=== PATIENT | female | born 1995 | race African-American/Black ===

== ENCOUNTER 2016-06-01 10:46 | Emergency (ER) | payer OTHER ==
[~2016-06-01] VITALS: Ht 157.5 cm; Wt 54.4 kg
[~2016-06-01 10:46] MED LIST: FLEXERIL10 MG PO; MOTRIN 600 MG600 MG PO; MOTRIN800 MG PO; NAPROSYN 500 M500 MG PO; TORADOL10 MG PO; TRAMADOL50 MG PO; ZOFRAN 4 MG TABL4 MG PO
--- NOTE | 2016-06-01 12:28 | ED SKIN/ALLERGY COMPLAINT ---
History of Present Illness General Chief Complaint: Suture Removal/Wound Recheck Stated Complaint: SUTURE REMOVAL Source: patient Exam Limitations: no limitations Vital Signs & Intake/Output Vital Signs & Intake/Output Vital Signs Date Time Temp Pulse Resp B/P Pulse O2 O2 Flow FiO2 Ox Delivery Rate 06/01 1304 98.0 60 20 110/60 98 Room Air 06/01 1134 97.9 63 18 108/38 97 Room Air Allergies Coded Allergies: NO KNOWN ALLERGIES (NONE) (01/11/15) Reconcile Medications No Known Home Medications Triage Note: 20 Y/O FEMALE REQUESTING SUTURE REMOVAL - 2 PLACED IN DIFFERENT SITES ON ABDOMEN; PT STATES SHE HAD LAPROSCOPIC SURGERY 04/15/16 AND "THEY WERE SUPPOSED TO DISSOLVE BUT THEY DIDNT". PT DENIES ANY COMPLAINTS. DID NOT CALL SURGEON (DR VALVERDE) Triage Nurses Notes Reviewed? yes : No Patient currently breastfeeds: No HPI: this patient is a 20-year-old female who presented to the emergency department today for evaluation of needing a possible suture removal. The patient reported that she was seen by Dr. Ralph at approximately 1 month ago to have a laparoscopy to evaluate for a possible ectopic . She had 2 small incisions, one at the umbilicus, and one in the suprapubic region which each required 1 and dissolvable suture. She reported that the sutures have not yet dissolved and she is requesting for them to be removed. The patient did not call her [employer]AK[employer] TE[employer]'s office prior to arrival. She denied any pain in these regions. She denies any discharge or redness or swelling. She denied any fevers or chills. No abdominal pain, nausea, or vomiting. (LETY JACQUES PA-C) Past History Travel History Traveled to [place] past 21 day No Medical History Any Pertinent Medical History? see below for history Neurological: NONE EENT: NONE Cardiovascular: PERICARDITIS Respiratory: NONE Gastrointestinal: NONE Hepatic: NONE Renal: NONE Musculoskeletal: NONE Psychiatric: NONE Endocrine: NONE Blood Disorders: NONE Cancer(s): NONE DENTAL SURGERY DOCTOR/Reproductive: NONE Surgical History Surgical History: N Psychosocial History What is your primary language Greek Tobacco Use: Never used Family History Hx Contributory? No (LETY JACQUES PA-C) Review of Systems Review of Systems Constitutional: Reports: no symptoms. EENTM: Reports: no symptoms. Respiratory: Reports: no symptoms. Cardiovascular: Reports: no symptoms. GI: Reports: no symptoms. Musculoskeletal: Reports: no symptoms. Skin: Reports: see HPI. Neurological/Psychological: Reports: no symptoms. All Other Systems: Reviewed and Negative (LETY JACQUES PA-C) Physical Exam Physical Exam General Appearance: well developed/nourished, no apparent distress, alert, awake Comments: Well-developed well-nourished person in no acute distress HEENT: Head normocephalic, moist mucous membranes Neck: Supple, no lymphadenopathy Back: Normal gait Respiratory: No respiratory distress. Speaking in full sentences Abdomen: Nondistended. Soft. Normoactive bowel sounds. Nontender. 2 sutures placed to the abdomen, one at the region of the umbilicus and another in the suprapubic region. Well healing scars. No surrounding erythema or edema. No discharge. Extremities: No edema, full range of motion Neuro: Alert and oriented x3 Psych: Mood affect normal, normal memory normal judgment. Skin: Warm and dry, no rash on exposed skin (LETY JACQUES PA-C) Progress Differential Diagnosis: abscess/cellulitis, contact dermatitis, drug reaction, suture removal Plan of Care: 06/01/2016 12:27:35 PM: Sutures that the patient is requesting to be removed were not placed here in the emergency department, but by her [employer]. No signs of infection around the incision site which have healed well. Did discuss this patient that she may need to wait longer for the sutures to dissolve. I have placed a call to Dr. Cho to discuss whether or not I should remove the sutures here or if he would like to see her in the office for follow-up. Comments: 06/01/2016 1:00:11 PM: Discussed this patient with Dr. Ralph. Said that this is normal for the sutures to still be there. Reported they will dissolve with time. (LETY JACQUES PA-C) Departure Departure Disposition: HOME OR SELF CARE Condition: Stable Clinical Impression Primary Impression: Suture check Referrals: RIKKI VÁZQUEZ APRN (PCP/Family) Additional Instructions: Let sutures dissolve on their own. Return for any worsening symptoms or concerns. Departure Forms: Customer Survey General Discharge Information Prescriptions: Current Visit Scripts No Known Home Medications (LETY JACQUES PA-C) PA/[employer]IX ENGINEER Co-Sign Statement Statement: ED Attending supervision documentation- [] I saw and evaluated the patient. I have also reviewed all the pertinent lab results and diagnostic results. I agree with the findings and the plan of care as documented in the PA's/UNIX ENGINEER's documentation. x I have reviewed the ED Record and agree with the PA's/UNIX ENGINEER's documentation. [] Additions or exceptions (if any) to the PAs/UNIX ENGINEER's note and plan are summarized below: [] (THOMAS ALMODOVAR,JOSE)
[2016-06-01 13:04] VITALS: BP 110/60
== END 2016-06-01 13:05 ==
LOC: ERH 10:46
DX: Z48.02 Encounter for removal of sutures (principal)